=== PATIENT | female | born 1965 | race American Indian/Alaskan Native ===

== ENCOUNTER 2017-02-28 07:30 | Day surgery (SDC) | payer OTHER ==
[2017-02-28 07:55] VITALS: BMI 24.4
[2017-02-28] MEDS ORDERED: Lactated Ringer's 1,000 ML IV ONE (08:30)
--- NOTE | 2017-02-28 08:34 | CP.SDSHP ---
Same Day Surgery H & P - History Proposed Procedure: COLONSCOPY Pre-Op Diagnosis: SEE NOTES - Previous Medical/Surgical History Endocrine/Metabolic: Diabetes Pain: 4.Moderate Pain - Allergies Allergies: Allergies No Known Allergies Allergy (Verified 02/28/17 07:54) - Physical Exam General Appearance: N Vital Signs: Vital Signs 02/28/17 08:03 Temperature 98.6 F Pulse Rate 97 H Respiratory 16 Rate Blood Pressure 116/63 O2 Sat by Pulse 100 Oximetry Mental Status: Alert & Oriented x3 Neuro: WNL Heart: WNL Lungs: WNL GI: Other - {Optional Preform as Required} Breast: WNL Abdomen: Other Rectal: Other Integument: WNL : WNL Ortho: WNL ENT: WNL - Impression Pt. Evaluated Today:Candidate for Anesthesia & Procedure: Yes - Date & Time Time: 08:34 Short Stay Discharge - Short Stay Discharge Admitting Diagnosis/Reason for Visit: ABNORMAL WEIGHT LOSS Disposition: HOME/ ROUTINE
[2017-02-28] MEDS ORDERED: Propofol 10 mg/ml Inj (20 ML) ONE (08:43)
[2017-02-28 09:09] VITALS: TEMP 98.5; O2SAT 99
[2017-02-28] MEDS ORDERED: Belladonna-Phenobarbital PO ONE (09:15)
[2017-02-28 10:19] VITALS: RESP 12
[2017-02-28 10:20] VITALS: BP 123/73; PULSE 85
== END 2017-02-28 10:00 | disposition home or self-care (01) ==
LOC: C.ENDO 07:30
PROVIDERS: ATTEND Specialist
DX: K57.90 Diverticulosis of intestine, part unspecified, without perforation or abscess without bleeding (principal); K64.8 Other hemorrhoids; K64.4 Residual hemorrhoidal skin tags; K58.9 Irritable bowel syndrome, unspecified
CPT/HCPCS: 45378; 82948; 84703; J2704; J7120